=== PATIENT | female | born 1965 | race Caucasian/White ===

== ENCOUNTER → 2018-03-01 | Outpatient (CLI) | payer BC ==
[2018-03-01 13:32] LABS: Blood Urea Nitrogen 13 mg/dL (7-17)
== END | disposition home or self-care (01) ==
LOC: LABWHC1 12:10
PROVIDERS: ATTEND Physical Medicine & Rehabilitation
DX: Z01.812 Encounter for preprocedural laboratory examination (principal); N28.9 Disorder of kidney and ureter, unspecified
CPT/HCPCS: 36415; 82565; 84520

== ENCOUNTER 2022-10-19 13:52 | Day surgery (SDC) | payer OTHER ==
[2022-10-13 10:56] VITALS: BMI 29.1
[~2022-10-19 13:52] MED LIST: LACTATED RINGERS 1,000 ML IV SCH; Pre Op ABX Message 1 EACH MISC MISCELLANE ONE
[2022-10-19 14:12] VITALS: RESP 16
[2022-10-19] MEDS ORDERED: ONDANSETRON 4 MG/2 ML VIAL ONE (14:18)
[2022-10-19] MEDS ORDERED: DEXAMETHASONE SOD PHOSPHATE 4 MG/ML 1 ML VIAL IVP ONE (14:25)
[2022-10-19] MEDS ORDERED: ONDANSETRON 4 MG/2 ML VIAL IVP ONE (14:25)
[2022-10-19] MEDS ORDERED: PROPOFOL 10 MG/ML 20 ML VIAL IV ONE (15:50)
[2022-10-19] MEDS ORDERED: fentaNYL (PF) 50 MCG/ML 2 ML AMP ONE (15:50)
[2022-10-19] MEDS ORDERED: LIDOCAINE 2% INJ 20 MG/ML (2 ML VIAL) ONE (15:50)
[2022-10-19] MEDS ORDERED: MIDAZOLAM 2 MG/2 ML VIAL ONE (15:50)
[2022-10-19] MEDS ORDERED: BUPIVACAINE (PF) 0.5% 30 ML VIAL SQ ONE ×2 (16:25→16:35)
--- NOTE | 2022-10-19 16:41 | P.OP ---
Date of Procedure: 10/19/22 Preoperative Diagnosis: 1. Torn medial meniscus right knee 2. Torn lateral meniscus right knee 3. Osteoarthritis right knee Postoperative Diagnosis: 1. Torn medial meniscus right knee 2. Torn lateral meniscus right knee 3. Grade 2 chondromalacia medial femoral compartment, lateral femoral compartment, patellofemoral compartment 4. Synovitis Procedure(s) Performed: 1. Arthroscopy of the right knee with partial medial meniscectomy (10% of the meniscus excised) 2. Partial lateral meniscectomy (40% of meniscus excised) 3. Chondroplasties of the medial femoral, lateral femoral, and patellofemoral compartments 4. Partial synovectomy of the medial femoral, lateral femoral, and patellofemoral compartments Anesthesia: BRANDEN Surgeon: Eduard Meeks Estimated Blood Loss (ml): 5 Pathology: none sent Condition: stable Disposition: PACU Indications for Procedure: This is a 57-year-old female that presented to my office with pain in her right knee. An MRI demonstrated torn medial and lateral menisci, as well as osteoarthritis of her knee. Treatment options were discussed at length, she wishes to proceed with arthroscopic debridement of right knee. Informed consent was obtained. Operative Findings: The operative findings are consistent with a torn medial and lateral menisci, chondromalacia of the medial femoral, lateral femoral, patellofemoral compartments. There was also synovitis as well Description of Procedure: Patient was seen and evaluated in the preoperative area, the operative site was marked with a skin marker. The patient was then brought to the operating room and given 2 g of Ancef intravenously. A general anesthetic was administered by the anesthesia department. Tourniquet was placed on the right upper thigh and the lower extremity was then prepped and draped in usual sterile fashion. A universal timeout was then performed confirming the patient's name, surgical site, ALLERGIES, and consent. The limb was then exsanguinated and tourniquet insufflated to 250 mmHg. Standard inferior medial and inferior lateral portals were established in the knee. The trochar was inserted in the inferolateral portal. Examination began at the patellofemoral joint. There is noted to be grade 2 chondral malacia the patellofemoral compartment and a moderate amount of synovitis. Next the medial compartment was visualized. There was a tear of the posterior horn of the medial meniscus. There was grade 2 chondral malacia the mediofemoral compartment and synovitis. The notch area was then visualized and the ACL was intact. The Lateral compartment was then visualized and there was a tear of the posterior horn of the lateral meniscus. There was grade 2 chondromalacia, and a mild amount of synovitis. Next, using an arthroscopic shaver and a biter, partial medial meniscectomy was performed stable margins. Approximately 10% of the meniscus was excised. a partial lateral meniscectomy was also performed with approximately 40% of the lateral meniscus excised. A partial synovectomy is performed the medial femoral, lateral femoral, patellofemoral compartments. Chondroplasty was also performed of the medial femoral, lateral femoral, and patellofemoral compartments of the knee. Knee was then copiously irrigated, instruments removed, incisions were closed with 4-0 nylon. 30 mL of half percent plain Marcaine was injected sterilely into the surgical area. A sterile dressing was then applied, and the tourniquet was released. Patient was then transferred to recovery room in stable condition.condition.
[2022-10-19 17:00] VITALS: TEMP 96.8
[2022-10-19] MEDS ORDERED: HYDROmorphone 0.5 MG/0.5 ML SYRINGE IVP ONE ×2 (17:14→17:30)
[2022-10-19] MEDS ORDERED: LACTATED RINGERS 1,000 ML IV ONE (17:22)
[2022-10-19] MEDS ORDERED: KETOROLAC 15 MG/ML 1 ML VIAL IVP ONE (17:35)
[2022-10-19] MEDS ORDERED: traMADol 50 MG TAB ONE (18:07)
[2022-10-19] MEDS ORDERED: traMADol 50 MG TAB PO ONE (18:08)
[2022-10-19 18:21] VITALS: PULSE 49
[2022-10-19 18:35] VITALS: BP 130/62
== END 2022-10-19 18:48 | disposition home or self-care (01) ==
LOC: OR 13:52
PROVIDERS: ATTEND Orthopaedic Surgery
DX: S83.241A Other tear of medial meniscus, current injury, right knee, initial encounter (principal); S83.281A Other tear of lateral meniscus, current injury, right knee, initial encounter; M17.11 Unilateral primary osteoarthritis, right knee; M65.9 Synovitis and tenosynovitis, unspecified; M94.261 Chondromalacia, right knee
CPT/HCPCS: 29880; J2250; J1100; J0690; J2405; J3010; J1885; J2704; J1170; J2001

== ENCOUNTER 2022-10-27 14:59 | Emergency (ER) | payer OTHER ==
[2022-10-27] MEDS ORDERED: HYDROcodone/APAP 5-325MG 1 EACH TAB PO STA (16:59)
[2022-10-27 17:14] LABS: Basophils % (A) 0 %; Eosinophils # (A) 0.1 k/uL (0-0.7); Eosinophils % (A) 1 %; HCT 41.7 % (34.0-46.0); HGB 13.6 gm/dL (11.4-16.0); Lymphocytes # (A) 3.1 k/uL (1.0-4.8); Lymphocytes % (A) 21 %; MCH 30.2 pg (25.0-35.0); MCHC 32.6 g/dL (31.0-37.0); MCV 92.5 fL (80.0-100.0); Mean Platelet Volume 9.2; Monocytes # (A) 0.9 k/uL (0-1.0); Monocytes % (A) 6 %; Neutrophils # (A) 10.5 k/uL (1.3-7.7); Neutrophils % (A) 71 %; Platelet Count 306 k/uL (150-450); RBC 4.51 m/uL (3.80-5.40); RDW 12.2 % (11.5-15.5); WBC 14.8 k/uL (3.8-10.6)
[2022-10-27 17:22] LABS: ALT 15 U/L (4-34); AST 24 U/L (14-36); African American GFR (CKD) >90 (>60 ml/min/1.73 sqM); Albumin 4.3 g/dL (3.5-5.0); Alkaline Phosphatase 103 U/L (38-126); Anion Gap 11 mmol/L; Blood Urea Nitrogen 15 mg/dL (7-17); Carbon Dioxide 29 mmol/L (22-30); Chloride 95 mmol/L (98-107); Glucose 88 mg/dL (74-99); Non-African American GFR(CKD) >90 (>60 ml/min/1.73 sqM); Potassium 4.3 mmol/L (3.5-5.1); Sodium 135 mmol/L (137-145); Total Bilirubin 0.9 mg/dL (0.2-1.3); Total Protein 7.2 g/dL (6.3-8.2)
[2022-10-27 17:34] LABS: INR 0.9 (<1.2); Partial Thromboplastin Time 24.3 sec (22.0-30.0); Prothrombin Time 9.8 sec (9.0-12.0)
[2022-10-27] MEDS ORDERED: APIXABAN 5 MG TAB PO STA (17:40)
--- NOTE | 2022-10-27 17:51 | ED ---
Extremity Problem HPI - General Chief complaint: Extremity Problem,Nontraumatic Stated complaint: + for DVT Time Seen by Provider: 10/27/22 15:49 Source: patient Mode of arrival: wheelchair Limitations: no limitations - History of Present Illness Initial comments: 57-year-old female presents to the emergency department reporting positive ultrasound results. She had meniscus surgery on her right knee by Dr. Meeks on October 19. States that she was able to get up and ambulate using the walker. She began having increasing redness, pain and swelling in the extremity on Tuesday. Called the office several times this week and was able to get an appo intment today. They sent her over to ultrasound where it was found that the patient had a DVT. Denies history. No chest pain or shortness of breath. No clotting disorders. Denies any fevers or chills. 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 - Related Data Home Medications Medication Instructions Recorded Confirmed Alendronate Sodium 70 mg PO WE 10/13/22 10/27/22 Cetirizine HCl [Zyrtec] 10 mg PO DAILY 10/13/22 10/27/22 Montelukast [Singulair] 10 mg PO DAILY 10/13/22 10/27/22 atenoloL [Tenormin] 25 mg PO DAILY 10/13/22 10/27/22 atenoloL [Tenormin] 50 mg PO HS 10/13/22 10/27/22 Cholecalciferol [Vitamin D3 (25 25 mcg PO DAILY 10/27/22 10/27/22 Mcg = 1000 Iu)] Cyanocobalamin (Vitamin B-12) 1,000 mcg PO DAILY 10/27/22 10/27/22 [Vitamin B-12] L.acidoph,Paracasei, B.lactis 1 cap PO DAILY 10/27/22 10/27/22 [Probiotic] traMADol HCL 50 mg PO Q4H PRN 10/27/22 10/27/22 traZODone HCL [Desyrel] 100 mg PO HS 10/27/22 10/27/22 Previous Rx's Medication Instructions Recorded Apixaban [Eliquis Starter Pack 5 - 10 mg PO DIRECTED 30 Days 10/27/22 (for VTE)] #1 each Allergies Allergy/AdvReac Type Severity Reaction Status Date / Time codeine Allergy Vomiting Verified 10/27/22 15:46 Review of Systems ROS Statement: Those systems with pertinent positive or pertinent negative responses have been documented in the HPI. ROS Other: All systems not noted in ROS Statement are negative. Past Medical History Past Medical History: Hypertension, Osteoarthritis (OA) Additional Past Medical History / Comment(s): SEASONAL ALLERGIES History of Any Multi-Drug Resistant Organisms: None Reported Past Surgical History: Orthopedic Surgery Additional Past Surgical History / Comment(s): COLONOSCOPY. EPIDURAL INJECTIONS Past Anesthesia/Blood Transfusion Reactions: No Reported Reaction Past Psychological History: No Psychological Hx Reported Smoking Status: Former smoker Past Alcohol Use History: None Reported Past Drug Use History: None Reported - Past Family History Father Family Medical History: Cancer Mother Family Medical History: Cancer General Exam Limitations: no limitations General appearance: alert, in no apparent distress Eye exam: Present: normal appearance, PERRL, EOMI. Absent: scleral icterus, conjunctival injection, periorbital swelling ENT exam: Present: normal exam, mucous membranes moist Respiratory exam: Present: normal lung sounds bilaterally. Absent: respiratory distress, wheezes, rales, rhonchi, stridor Cardiovascular Exam: Present: regular rate, normal rhythm, normal heart sounds. Absent: systolic murmur, diastolic murmur, rubs, gallop, clicks Extremities exam: Present: tenderness (right calf), other (incision over right knee is clean, dry and intact, no purulent draiange, compartments soft 2+ DP and PT pulses) Course Vital Signs 10/27/22 10/27/22 15:00 18:55 Temperature 98.7 F 98.2 F Pulse Rate 67 68 Respiratory 16 18 Rate Blood Pressure 140/78 156/79 O2 Sat by Pulse 98 98 Oximetry Medical Decision Making - Medical Decision Making Was pt. sent in by a medical professional or institution (, PA, ENGINEERING DIRECTOR, urgent care, hospital, or prison...) When possible be specific @ -US department Did you speak to anyone other than the patient for history (EMS, parent, family, police, friend...)? What history was obtained from this source @ -No Did you review nursing and triage notes (agree or disagree)? Why? @ -I reviewed and agree with nursing and triage notes Were old charts reviewed (outside hosp., previous admission, EMS record, old EK G, old radiological studies, urgent care reports/EKG's, prison records)? Report findings @ -Outpatient US was reviewed from earlier today Differential Diagnosis (chest pain, altered mental status, abdominal pain women, abdominal pain men, vaginal bleeding, weakness, fever, dyspnea, syncope, headache, dizziness, GI bleed, back pain, seizure, CVA, palpatations, mental health, musculoskeletal)? @ -compartment syndrome, post op pain, dvt, post op infection EKG interpreted by me (3pts min.). @ -Not done X-rays interpreted by me (1pt min.). @ -None done CT interpreted by me (1pt min.). @ -None done U/S interpreted by me (1pt. min.). @ -yes What testing was considered but not performed or refused? (CT, X-rays, U/S, labs)? Why? @ -pe workup but patient has no chest pain/sob What meds were considered but not given or refused? Why? @ -None Did you discuss the management of the patient with other professionals (professionals i.e. , PA, ENGINEERING DIRECTOR, lab, RT, psych nurse, social work job titles, cattle killer, teacher, welfare officer, case monitor)? Give summary @ -No Was smoking cessation discussed for >3mins.? @ -No Was critical care preformed (if so, how long)? @ -No Were there social determinants of health that impacted care today? How? (Homelessness, low income, unemployed, alcoholism, drug addiction, transportation, low edu. Level, literacy, decrease access to med. care, [facility], rehab)? @ -No Was there de-escalation of care discussed even if they declined (Discuss DNR or withdrawal of care, Hospice)? DNR status @ -No What co-morbidities impacted this encounter? (DM, HTN, Smoking, COPD, CAD, Cancer, CVA, ARF, Chemo, Hep., AIDS, mental health diagnosis, sleep apnea, morbid obesity)? @ -None Was patient admitted / discharged? Hospital course, mention meds given and route, prescriptions, significant lab abnormalities, going to OR and other pertinent info. @ -Upon arrival patient is placed in room 32. History and physical exam was performed. Ultrasound is reviewed which demonstrates a DVT in the right popliteal region as well as extending into the posterior tibial. The patient does not have any proximal clots. She does not have any chest pain or shortness of breath. Laboratory studies are completed and demonstrate normal blood coun ts. Patient will be initiated on Eliquis. Given first dose in the emergency room. Will be discharged home started pack. Instructed to follow up with her primary care doctor and vascular surgery for further management of the anticoagulation and return for any new or worsening symptoms. Patient was agreeable and she was discharged home in stable condition Undiagnosed new problem with uncertain prognosis? @ -No Drug Therapy requiring intensive monitoring for toxicity (Heparin, Nitro, Insulin, Cardizem)? @ -No Were any procedures done? @ -No Diagnosis/symptom? @ -acute rle dvt, s/p knee surgery Acute, or Chronic, or Acute on Chronic? @ -acute Uncomplicated (without systemic symptoms) or Complicated (systemic symptoms)? @ -uncomplicated Side effects of treatment? @ -Bleeding Exacerbation, Progression, or Severe Exacerbation? @ -No Poses a threat to life or bodily function? How? (Chest pain, USA, VT, pneumonia, PE, COPD, DKA, ARF, appy, cholecystitis, CVA, Diverticulitis, Homicidal, Suicidal, threat to staff... and all critical care pts) @ -Yes - Lab Data Result diagrams: 10/27/22 16:44 10/27/22 16:44 Lab Results 10/27/22 10/27/22 10/27/22 Range/Units 16:44 16:44 16:44 WBC 14.8 H (3.8-10.6) k/uL RBC 4.51 (3.80-5.40) m/uL Hgb 13.6 (11.4-16.0) gm/dL Hct 41.7 (34.0-46.0) % MCV 92.5 (80.0-100.0) fL MCH 30.2 (25.0-35.0) pg MCHC 32.6 (31.0-37.0) g/dL RDW 12.2 (11.5-15.5) % Plt Count 306 (150-450) k/uL MPV 9.2 Neutrophils % 71 % Lymphocytes % 21 % Monocytes % 6 % Eosinophils % 1 % Basophils % 0 % Neutrophils # 10.5 H (1.3-7.7) k/uL Lymphocytes # 3.1 (1.0-4.8) k/uL Monocytes # 0.9 (0-1.0) k/uL Eosinophils # 0.1 (0-0.7) k/uL Basophils # 0.0 (0-0.2) k/uL PT 9.8 (9.0-12.0) sec INR 0.9 (<1.2) APTT 24.3 (22.0-30.0) sec Sodium 135 L (137-145) mmol/L Potassium 4.3 (3.5-5.1) mmol/L Chloride 95 L (98-107) mmol/L Carbon Dioxide 29 (22-30) mmol/L Anion Gap 11 mmol/L BUN 15 (7-17) mg/dL Creatinine 0.45 L (0.52-1.04) mg/dL Est GFR (CKD-EPI)AfAm >90 (>60 ml/min/1.73 sqM) Est GFR (CKD-EPI)NonAf >90 (>60 ml/min/1.73 sqM) Glucose 88 (74-99) mg/dL Calcium 9.0 (8.4-10.2) mg/dL Total Bilirubin 0.9 (0.2-1.3) mg/dL AST 24 (14-36) U/L ALT 15 (4-34) U/L Alkaline Phosphatase 103 (38-126) U/L Total Protein 7.2 (6.3-8.2) g/dL Albumin 4.3 (3.5-5.0) g/dL Disposition Clinical Impression: Deep vein thrombosis (DVT) of lower extremity Disposition: HOME SELF-CARE Condition: Stable Instructions (If sedation given, give patient instructions): Deep Vein Thrombosis (ED) Additional Instructions: Please take medications as directed. Follow up with primary care doctor and return for any new or worsening symptoms. Vascular surgeon would be a good doctor to follow up with to discuss how long you need to be on the anticoagulation Prescriptions: Apixaban [Eliquis Starter Pack (for VTE)] 5 - 10 mg PO DIRECTED 30 Days #1 each Is patient prescribed a controlled substance at d/c from ED?: No Referrals: Tayler Caal MD [Primary Care Provider] - 1-2 days Stefania Cervantes DO [STAFF PHYSICIAN] - 1-2 days Time of Disposition: 17:52
[2022-10-27 18:58] VITALS: BP 156/79; PULSE 68; RESP 18; TEMP 98.2
== END 2022-10-27 19:26 | disposition home or self-care (01) ==
LOC: EC 14:59
DX: I82.431 Acute embolism and thrombosis of right popliteal vein (principal); I82.441 Acute embolism and thrombosis of right tibial vein; I10 Essential (primary) hypertension; Z88.5 Allergy status to narcotic agent; Z87.891 Personal history of nicotine dependence; Z79.899 Other long term (current) drug therapy
CPT/HCPCS: 36415; 80053; 85025; 85610; 85730; 99284

== ENCOUNTER → 2022-10-27 | Outpatient (CLI) | payer OTHER ==
--- NOTE | 2022-10-27 15:06 | US ---
EXAMINATION TYPE: US venous doppler duplex LE RT DATE OF EXAM: 10/27/2022 2:46 PM COMPARISON: NONE CLINICAL HISTORY: M25.561 PAIN IN RT KNEE. right knee surgery 1 week ago. pain right knee. edema righ t leg SIDE PERFORMED: right TECHNIQUE: The lower extremity deep venous system is examined utilizing real time linear array sonog rhonda with graded compression, doppler sonography and color-flow sonography. VESSELS IMAGED: Common Femoral Vein Deep Femoral Vein Greater Saphenous Vein * Femoral Vein Popliteal Vein Small Saphenous Vein * Proximal Calf Veins (* superficial vessels) Right Leg: +positive for DVT right popliteal vein and right PTV IMPRESSION: Findings compatible with DVT.
== END | disposition home or self-care (01) ==
LOC: RADUSWWP 13:48
PROVIDERS: ATTEND Orthopaedic Surgery
DX: Z48.89 Encounter for other specified surgical aftercare (principal); M17.0 Bilateral primary osteoarthritis of knee; M23.322 Other meniscus derangements, posterior horn of medial meniscus, left knee; M23.342 Other meniscus derangements, anterior horn of lateral meniscus, left knee; I80.3 Phlebitis and thrombophlebitis of lower extremities, unspecified

== ENCOUNTER → 2023-09-19 | Outpatient (CLI) | payer OTHER ==
[2023-09-19 11:01] LABS: INR 0.9 (<1.2); Partial Thromboplastin Time 25.4 sec (22.0-30.0); Prothrombin Time 9.9 sec (10.0-12.5)
[2023-09-19 15:53] LABS: ALT 16 U/L (8-44); AST 19 U/L (13-35); Albumin 4.3 g/dL (3.8-4.9); Albumin/Globulin Ratio 1.79 Ratio (1.60-3.17); Alkaline Phosphatase 95 U/L (41-126); Blood Urea Nitrogen 15.6 mg/dL (9.0-27.0); Calcium 9.8 mg/dL (8.7-10.3); Carbon Dioxide 28.5 mmol/L (21.6-31.8); Chloride 102 mmol/L (96-109); Globulin 2.4 g/dL (1.6-3.3); Glucose 97 mg/dL (70-110); Potassium 4.3 mmol/L (3.5-5.5); Sodium 142 mmol/L (135-145); Total Bilirubin 0.4 mg/dL (0.3-1.2); Total Protein 6.7 g/dL (6.2-8.2)
[2023-09-19 16:11] LABS: HCT 42.9 % (37.2-46.3); HGB 13.7 g/dL (12.0-15.0); MCH 29.9 pg (27.0-32.0); MCHC 31.9 g/dL (32.0-37.0); MCV 93.7 FL (80.0-97.0); Mean Platelet Volume 11.7 FL (9.5-12.2); NRBC Per 100 WBC 0 X 10*3/uL (0.00-0.01); Platelet Count 261 X 10*3/uL (140-440); RBC 4.58 X 10*6/uL (4.10-5.20); RDW 12.7 % (11.5-14.5); WBC 7.69 X 10*3/uL (4.50-10.00)
[2023-09-19 17:33] LABS: Appearance,Urine Clear (Clear); Bilirubin,Urine Negative (Negative); Blood,Urine Negative (Negative); Color,Urine Yellow (Yellow); Ketones,Urine Negative (Negative); Nitrite,Urine Negative (Negative); Specific Gravity,Urine 1.021 (1.001-1.030); Urobilinogen,Urine 0.2 E.U./DL
[2023-09-19 17:41] LABS: Bacteria,Urine None Seen (None Seen)
== END | disposition home or self-care (01) ==
LOC: LABPAT 09:59
PROVIDERS: ATTEND Orthopaedic Surgery
DX: Z01.812 Encounter for preprocedural laboratory examination (principal)
CPT/HCPCS: 36415; 80053; 81001; 85027; 85610; 85730

== ENCOUNTER 2023-09-27 09:34 | Day surgery (SDC) | payer OTHER ==
[2023-09-22 14:32] VITALS: BMI 29.5
[~2023-09-27 09:34] MED LIST changes: +HYDROmorphone 0.5 MG/0.5 ML SYRINGE IVP PRN; -LACTATED RINGERS 1,000 ML IV SCH; +LIDOCAINE 1% (10MG/ML) FOR IV START INTRADERMA PRN; +MAGNESIUM HYDROXIDE 2,400 MG/30 ML CUP PO PRN; +NA PHOS,M-B/NA PHOS,DI-BA 133 ML ENEMA RECTAL PRN; +NALOXONE 0.4 MG/ML 1 ML VIAL IV PRN; -Pre Op ABX Message 1 EACH MISC MISCELLANE ONE; +TRANEXAMIC 1,000 MG/100ML-NACL 1,000 MG in SALINE 1 100ML.BAG IVPB PRN; +bisacodyL 10 MG SUPP RECTAL PRN
[2023-09-27] MEDS: GABAPENTIN 300 MG CAP PO PRN (10:30)
[2023-09-27] MEDS: ONDANSETRON 4 MG/2 ML VIAL IVP ONE (10:30)
[2023-09-27] MEDS: MELOXICAM 7.5 MG TAB PO PRN (10:30)
[2023-09-27] MEDS: ACETAMINOPHEN TAB 500 MG TAB PO PRN (10:30)
[2023-09-27] MEDS: fentaNYL (PF) 50 MCG/ML 2 ML AMP IVP ONE (10:38)
[2023-09-27] MEDS: MIDAZOLAM 2 MG/2 ML VIAL IVP ONE (10:38)
[2023-09-27] MEDS: LACTATED RINGERS 1,000 ML IV ONE (10:50)
[2023-09-27] MEDS ORDERED: PROPOFOL 10 MG/ML 20 ML VIAL IV ONE (10:51)
[2023-09-27] MEDS ORDERED: MIDAZOLAM 2 MG/2 ML VIAL ONE (10:51)
[2023-09-27] MEDS ORDERED: fentaNYL (PF) 50 MCG/ML 2 ML AMP ONE (10:51)
[2023-09-27] MEDS ORDERED: SODIUM CHLORIDE 0.9% (PF) 10 ML VIAL ONE (10:51)
[2023-09-27] MEDS ORDERED: TRANEXAMIC 1,000 MG/100ML-NACL PREMIX BAG ONE (10:51)
[2023-09-27] MEDS ORDERED: PHENYLEPHRINE 10 MG/ML VIAL ONE (10:51)
[2023-09-27] MEDS ORDERED: HYDROmorphone (PF) 1 MG/ML ONE (10:51)
[2023-09-27] MEDS ORDERED: ROPIVACAINE 5 MG/ML 30 ML VIAL ONE (10:51)
[2023-09-27] MEDS: ceFAZolin 1,000 MG in SODIUM CHLORIDE 0.9% 1,000 ML IRRIGATION ONE (10:55)
--- NOTE | 2023-09-27 11:50 | P.ANPRN ---
Procedure Note - Anesthesia - Nerve Block Performed Right Adductor Canal Infusion Time Out Performed: Yes (1037) Date of Procedure: 09/27/23 Procedure Start Time: 10:38 Procedure Stop Time: 10:43 Location of Patient: PreOp Indication: Acute Post-Operative Pain, Requested by Surgeon Specifically requested for management of pain by DrParis: Eduard Meeks Sedation Type: Sedate with meaningful contact maintained Preparation: Sterile Prep, Sterile Dressing Position: Supine Catheter Depth at Skin (cm): 7 Catheter: Indwelling Needle Types: Pajunk Needle Gauge: 18 Ultrasound used to visualize needle placement: Yes Ultrasound used to observe medication spread: Yes Injectate: 0.5% Ropivacaine (see comment for volume) (15cc+10cc nacl pf) Blood Aspirated: No Pain Paresthesia on Injection Noted: No Resistance on Injection: Normal Image Stored and Saved: Yes Events: Uneventful and Well Tolerated
--- NOTE | 2023-09-27 11:51 | P.ANPRN ---
Procedure Note - Anesthesia - Nerve Block Performed Right iPack Single Time Out Performed: Yes (1037) Date of Procedure: 09/27/23 Procedure Start Time: 10:44 Procedure Stop Time: 10:49 Location of Patient: PreOp Indication: Acute Post-Operative Pain, Requested by Surgeon Specifically requested for management of pain by DrParis: Eduard Meeks Sedation Type: Sedate with meaningful contact maintained Preparation: Sterile Prep Position: Supine Catheter: None Needle Types: Pajunk Needle Gauge: 21 Ultrasound used to visualize needle placement: Yes Ultrasound used to observe medication spread: Yes Injectate: 0.5% Ropivacaine (see comment for volume) (15cc +10cc nacl pf) Blood Aspirated: No Pain Paresthesia on Injection Noted: No Resistance on Injection: Normal Image Stored and Saved: Yes Events: Uneventful and Well Tolerated
--- NOTE | 2023-09-27 12:06 | P.OP ---
Date of Procedure: 09/27/23 Preoperative Diagnosis: Severe osteoarthritis of the right knee with a valgus deformity Postoperative Diagnosis: Severe osteoarthritis of the right knee with a valgus deformity Procedure(s) Performed: Right total knee arthroplasty Implants: [employer] Nephew Journey II CR Oxinium Bi-cruciate stabilized femoral component size 4, right [employer]hew Journey nonporous tibial baseplate size 3, right [employer] Journey II, constrained articular insert, size 11 mm, Size 3-4, right [employer]hew Journey Alaina II resurfacing patellar component, oval, 29 mm All components were cemented using Palacos R bone cement The articulation is Oxinium on polyethylene Anesthesia: spinal Surgeon: Eduard Meeks Pattern Weaver #1: Ema Lopez Estimated Blood Loss (ml): 30 Pathology: none sent Condition: stable Disposition: PACU Indications for Procedure: The patient's knee is end-stage, and conservative management has failed. The operation of knee replacement has been discussed at length in the office, as well as potential risks and complications. These are inclusive of, but not limited to: Infection, bleeding, scarring, discomfort, stiffness, blood vessel and nerve damage, need for further surgery, failure to relieve symptoms, persistence, recurrence, or worsening of problems, loosening, dislocation, wear, blood clot, pulmonary embolism, , gait dysfunction, stiffness, and other risks as discussed in the office. Patient elects to proceed and the consent form has been signed. Operative Findings: The operative findings are consistent with severe osteoarthritis of the right knee with a significant valgus deformity Description of Procedure: The patient was seen in the preoperative area, the consent was reviewed and the operative site was marked with a skin marker. The patient verified the procedure and the operative site. An adductor canal pain catheter and an iPACK block were placed by anesthesia in the preoperative area. The patient was then brought to the operating room and positioned on the operating room table in the supine position. Preoperative antibiotics and a gram of tranexamic acid were given intravenously. A spinal anesthetic was administered by the anesthesia department. Care was taken to make sure that all pressure points were adequately padded. A tourniquet was placed on the upper thigh and the lower extremity was prepped with ChloraPrep and draped in usual sterile fashion. A universal time-out was then performed which confirmed the patient's name, surgical site, ALLERGIES, and consent. The lower extremity was then exsanguinated and tourniquet was inflated to 250 mmHg. A standard anterior midline approach to the knee was performed. The skin and subcutaneous tissue were sharply dissected down to the patellar tendon. A medial parapatellar arthrotomy was then performed. The knee was then extended, the patellar was everted, and the knee was flexed. The infra-patellar fat pad was removed in order to enhance exposure. The anterior horns of both menisci were excised, and a release was performed to the posterior medial aspect of the knee. On gross visual inspection, there was complete loss of articular cartilage in the medial and patellofemoral joint spaces. There was also significant cartilage damage in the lateral compartment. There were multiple periarticular osteophytes globally about the knee which were then removed with a Ronguer. The femoral canal was then opened with the 9.5 mm intramedullary drill. The 8 mm intramedullary sheila was then inserted into the femoral canal with the distal femoral cutting guide set for 5 of valgus. The distal femoral cutting block was then pinned in place. The intramedullary sheila was then removed, and the distal femur was then cut. The cutting block was then removed and the cut was checked for symmetry. The resected bone was then measured to confirm the appropriate distal femoral resection. Next, the sizing guide was then placed and set for 3 external rotation based off of the epicondylar axis and [place]'s line. Pins were then placed and the drill holes, and the femur was sized with the sizing stylus. The pins were then removed, and the sizing guide was then removed. The spikes of the appropriate size femoral block was then placed into the predrilled holes, and malleted into place. Two 45 mm pins were then placed into the fixation holes on the cutting block. An kisha wing was then used to ensure there would be no notching with the anterior cut. The anterior condyles were cut without notching. The anterior chord cut was then performed, followed by the posterior cut, posterior chamfer cut, and the anterior chamfer cut. The collateral ligaments were protected during the entire process. The cutting block was then removed. Any remaining bone and osteophytes were removed from the femur with a Ronguer. Attention was then directed to the tibia. The remaining ACL was removed with a Ronguer, and the tibia was then gently subluxed forward with a large bent knee retractor. Any remaining menisci were excised. The posterior lateral corner was cauterized in order to coagulate the lateral geniculate artery. The extra medullary tibial cutting guide was then placed, set for the appropriate rotation, slope, and depth of resection. The proximal tibia cutting guide was then pinned in place. Proximal tibia was then cut and sized. A curved osteotome was then used to remove any posterior osteophytes from the distal femur. The femoral trial was placed. The box drill guide was used to remove the intrac ondylar femoral bone. The box trial was then placed. The tibial trial was placed with the appropriate-sized insert. The knee was able to fully extend and flex to 130 and was stable throughout all range of motion. The knee was then extended and the patella was everted. Patella was then measured, and then using an osteotomy guide, the patella was cut at the appropriate level. The patellar component was sized. The patellar drill guide was placed and the patella was drilled. The patella trial was then placed. The knee was then taken through range of motion with the patella trial and the patella tracked normally using the no thumbs technique. The patella trial was then removed. The knee was then flexed and lug holes were drilled through the femoral trial and the femoral trial was then removed. The tibial was then re-exposed, and the tibial broach guide was then pinned in place after it was set for the appropriate rotation to allow for the most coverage without overhang. The tibia was then reamed and broached. The femoral canal was plugged with autologous bone. The cut surfaces of bone were then irrigated with pulsatile lavage. The knee was also irrigated with Irrisept solution. The components were then opened, the cement was mixed. Cement was placed on the backside of the femoral, tibial, and patellar components. Cement was then applied to the tibial surface and pressurized into the surface using finger pressurization technique. The tibial component was then applied and excess cement was removed after it was impacted securely noted to be flush with the cut surface. In similar fashion, the cement was applied to the cut femoral surface, pressurized and using finger pressurization the component was impacted in place. Excess cement was removed. The polyethylene spacer was then implanted and locked into position. Patellar component was then applied in a similar technique and the patellar clamp was used to hold patella in place while the cement hardened. The knee was held in full extension while the cement hardened. Once the cement had fully hardened, the knee was reinspected. Any other cement extrusion was removed the final range of motion testing showed range of motion from 0-130 with excellent stability, both medial and laterally and appropriate alignment of the leg. Patella tracked normally. After the cemented hardened, the tourniquet was released and hemostasis was obtained. A second gram of transexamic acid was given intravenously. The knee was again irrigated. The knee was again taken through range of motion and found to be stable throughout all range of motion of 0-130, and the patella tracked normally. The fascia was then closed with 0 Vicryl followed by #2 strata fix suture. The subcutaneous tissue was closed with 3-0 Vicryl and 3-0 strata fix. Exofin glue was used for the skin and placed with the knee in flexion. After the glue had dried, and Optafoam silver impregnated dressing was applied. A lightly compressive dressing was applied using web roll and Jadon wrap. Patient was then transferred to the stretcher and taken to recovery room in stable condition. Sponge and needle counts were correct. The assistant front desk manager BRENNAN Roberson was required due the complexity surgery and the need for a skilled boilermaker's assistant. She assisted in positioning, draping, retraction, and closure of the wound.
[2023-09-27] MEDS: ROPIVACAINE 0.75% 1,100 MG, SODIUM CHLORIDE 0.9% 500 ML 403 ML, EMPTY PAIN BALL 1 EACH MISCELLANE PRN (12:45)
[2023-09-27] MEDS: fentaNYL (PF) 50 MCG/ML 2 ML AMP IV PRN (12:46)
[2023-09-27] MEDS: MEPERIDINE 50 MG/ML SYRINGE IVP ONE (13:25)
[2023-09-27] MEDS: LACTATED RINGERS 1,000 ML IV SCH (13:26)
--- NOTE | 2023-09-27 13:53 | XR ---
EXAMINATION TYPE: XR knee limited RT DATE OF EXAM: 09/27/2023 COMPARISON: NONE TECHNIQUE: Two views submitted HISTORY: Post op FINDINGS: There is a prosthetic knee in near anatomic alignment. There is soft tissue edema and soft tissue a ir\emphysema. IMPRESSION: 1. Postoperative change.
[2023-09-27] MEDS: HYDROmorphone 0.5 MG/0.5 ML SYRINGE IVP PRN (15:41)
[2023-09-27] MEDS: SODIUM CHLORIDE 0.9% 1,000 ML IV SCH (16:37)
[2023-09-27] MEDS: ONDANSETRON 4 MG/2 ML VIAL IVP PRN (16:51)
[2023-09-27] MEDS: HYDROmorphone 1 MG/ML 1 ML SYRINGE IVP PRN (18:32)
[2023-09-27] MEDS ORDERED: ASPIRIN 325 MG TAB PO SCH (21:00)
[2023-09-27] MEDS: SENNOSIDES-DOCUSATE SODIUM 1 EACH TAB PO SCH (21:12)
[2023-09-28] MEDS ORDERED: NON FORMULARY DRUG (Alendronate Sodium [Alendronate Sodium] 70 MG Tablet) PO SCH (07:00)
--- NOTE | 2023-09-28 07:47 | P.PN ---
Progress Note - Text 09/28/22 717am 58-year-old female status post total knee replacement. Patient has an On-Q pump for postop pain control with a solution running at 8 cc an hour with a VAS of 8. Pain is predominantly located posteriorly and I explained to the patient that the iPAQ block is worn off. Dressing clean dry and intact to continue On-Q pump infusion
[2023-09-28 07:49] VITALS: BP 110/67; PULSE 63; RESP 18; TEMP 97.8
[2023-09-28] MEDS ORDERED: HYDROcodone/APAP 7.5-325MG 1 EACH TAB PO PRN (09:08)
[2023-09-28] MEDS: APIXABAN 5 MG TAB PO SCH (09:24)
[2023-09-28] MEDS: HYDROcodone/APAP 7.5-325MG 1 EACH TAB PO PRN (09:24)
[2023-09-28] MEDS: LORATADINE 10 MG TAB PO SCH (09:24)
[2023-09-28] MEDS: CHOLECALCIFEROL 25 MCG (1000 IU) TABLET PO SCH (09:24)
[2023-09-28] MEDS: FAMOTIDINE 20 MG TAB PO SCH (09:24)
[2023-09-28] MEDS: MONTELUKAST 10 MG TAB PO SCH (09:24)
[2023-09-28] MEDS ORDERED: CYCLOBENZAPRINE 10 MG TAB PO PRN (10:04)
--- NOTE | 2023-09-28 10:16 | P.DS ---
Providers Expected date of discharge: 09/28/23 Attending physician: Eduard Meeks Consults: 09/27/23 12:56 Consult Physician Routine Consulting Provider: Janes Lombardo Consult Reason/Comments: medical management Do you want consulting provider notified?: Yes Primary care physician: Tayler Caal - Discharge Diagnosis(es) (1) Osteoarthritis of right knee Current Visit: Yes Status: Acute (2) Status post total right knee replacement Current Visit: Yes Status: Acute Hospital Course: This is a 58-year-old female with known history of degenerative arthritis of the right knee. The patient presented for evaluation as an outpatient. After discussion and consideration patient elects to proceed with total knee arthroplasty. The patient is seen preoperatively by Dr. Meeks and medically cleared for surgery by their primary care physician. Patient is admitted to [facility] on 09/27/2023 for total knee arthroplasty. The procedure is performed without complication or sequelae. The patient is doing well postoperatively. Labs and vital signs are stable on day of discharge. On day of discharge patient's knee incision is healing well. There is minimal erythema. There is no drainage noted at this time. There is minimal soft tissue swelling to the knee. Patient has full foot and ankle motion without difficulty or pain. Calf is soft and nontender to palpation. Neurovascular status to the right lower extremity is intact. Patient is discharged home in good condition. Please see med rec for accurate list of home medications. Plan - Discharge Summary Discharge Rx Participant: No New Discharge Prescriptions: New HYDROcodone/APAP 7.5-325MG [[place] 7.5-325] 1 - 2 tab PO Q6H PRN #32 tab PRN Reason: Pain Sennosides [Senokot] 2 tab PO DAILY PRN #60 tablet PRN Reason: Constipation Ondansetron Odt [Zofran Odt] 1 tab PO Q8HR PRN #10 tab PRN Reason: Nausea Cyclobenzaprine [Flexeril] 10 mg PO TID PRN #30 tab PRN Reason: Muscle Spasm Apixaban [Eliquis] 2.5 mg PO BID 30 Days #60 tab No Action Montelukast [Singulair] 10 mg PO QAM Cetirizine HCl [Zyrtec] 10 mg PO DAILY Famotidine [Pepcid] 20 mg PO QAM atenoloL [Tenormin] 20 mg PO HS atenoloL [Tenormin] 50 mg PO QAM Alendronate Sodium 70 mg PO WE Cholecalciferol [Vitamin D3 (25 Mcg = 1000 Iu)] 25 mcg PO DAILY traZODone HCL [Desyrel] 100 mg PO HS Discharge Medication List Alendronate Sodium 70 mg PO WE 10/13/22 [History] Cetirizine HCl [Zyrtec] 10 mg PO DAILY 10/13/22 [History] Montelukast [Singulair] 10 mg PO QAM 10/13/22 [History] atenoloL [Tenormin] 50 mg PO QAM 10/13/22 [History] Cholecalciferol [Vitamin D3 (25 Mcg = 1000 Iu)] 25 mcg PO DAILY 10/27/22 [History] traZODone HCL [Desyrel] 100 mg PO HS 10/27/22 [History] Famotidine [Pepcid] 20 mg PO QAM 09/22/23 [History] atenoloL [Tenormin] 20 mg PO HS 09/22/23 [History] Apixaban [Eliquis] 2.5 mg PO BID 30 Days #60 tab 09/27/23 [Rx] HYDROcodone/APAP 7.5-325MG [[place]auw 7.5-325] 1 - 2 tab PO Q6H PRN #32 tab 09/27/23 [Rx] Ondansetron Odt [Zofran Odt] 1 tab PO Q8HR PRN #10 tab 09/27/23 [Rx] Sennosides [Senokot] 2 tab PO DAILY PRN #60 tablet 09/27/23 [Rx] Cyclobenzaprine [Flexeril] 10 mg PO TID PRN #30 tab 09/28/23 [Rx] Follow up Appointment(s)/Referral(s): [facility],Equipment [NON-STAFF] - As Needed (*Please call [facility] to arrange delivery of the Continuous Passive Motion (CPM) machine. ) [facility], [NON-STAFF] - 1-2 Days ([facility] will call you to schedule your in home physical therapy visits. ) Eduard Meeks DO [Doctor of Osteopathic Medicine] - 10/13/23 2:45 pm (With Ema) Activity/Diet/Wound Care/Special Instructions: Weightbearing as tolerated with a walker. CPM 5-6h daily as tolerated. Leave dressing intact. Dressing may be removed by home care nurse or by patient in 7 days. Then change dressing twice daily until follow up. May shower with initial dressing intact and after removal. If dressing become saturated, please remove. Recommend use of compression stockings daily until follow up to help prevent swelling and blood clots. May remove at night before sleeping. Please take Eliquis twice daily for 30 days to prevent blood clots. Please follow up with [facility] and call with any questions or concerns, . Discharge Disposition: HOME WITH HOME HEALTH SERVICES
[2023-09-28 10:59] LABS: Basophils # (A) 0.04 X 10*3/uL (0.00-0.10); Basophils % (A) 0.3 %; Eosinophils # (A) 0 X 10*3/uL (0.04-0.35); Eosinophils % (A) 0 %; HCT 38.4 % (37.2-46.3); HGB 12.2 g/dL (12.0-15.0); Lymphocytes # (A) 2.18 X 10*3/uL (0.90-5.00); Lymphocytes % (A) 15.3 %; MCH 29.9 pg (27.0-32.0); MCHC 31.8 g/dL (32.0-37.0); MCV 94.1 FL (80.0-97.0); Mean Platelet Volume 11.6 FL (9.5-12.2); Monocytes # (A) 1.14 X 10*3/uL (0.20-1.00); NRBC Per 100 WBC 0 X 10*3/uL (0.00-0.01); Neutrophils # (A) 10.81 X 10*3/uL (1.80-7.70); Platelet Count 215 X 10*3/uL (140-440); RBC 4.08 X 10*6/uL (4.10-5.20); RDW 13.1 % (11.5-14.5); WBC 14.22 X 10*3/uL (4.50-10.00)
[2023-09-28] MEDS ORDERED: traZODone HCL 100 MG TAB PO SCH (21:00)
[2023-09-28] MEDS ORDERED: APIXABAN 2.5 MG TABLET PO SCH (21:00)
== END 2023-09-28 12:43 | disposition home health service (06) ==
LOC: OR 09:34 → 4SSUR 12:30 → OR 09-28 12:43
PROVIDERS: ATTEND Orthopaedic Surgery
DX: M17.11 Unilateral primary osteoarthritis, right knee (principal); G89.18 Other acute postprocedural pain; I10 Essential (primary) hypertension; H91.90 Unspecified hearing loss, unspecified ear; F10.90 Alcohol use, unspecified, uncomplicated; Z86.718 Personal history of other venous thrombosis and embolism; Z88.5 Allergy status to narcotic agent; Z79.899 Other long term (current) drug therapy; Z98.890 Other specified postprocedural states; Z87.891 Personal history of nicotine dependence
CPT/HCPCS: 97161; 64999; 64448; 85025; 73560; 27447; C1713; C1776; C1751; J2250; J2175; J0690 ×2; J2405 ×2; J3010; J1170 ×3; J2795

== ENCOUNTER 2024-05-23 23:09 | Emergency (ER) | payer OTHER ==
[2024-05-23 23:14] VITALS: RESP 18
--- NOTE | 2024-05-23 23:31 | ED ---
General Adult HPI - General Chief complaint: Head Injury Stated complaint: Fall Time Seen by Provider: 05/23/24 23:16 Source: patient, EMS, RN notes reviewed, old records reviewed Mode of arrival: EMS Limitations: no limitations - History of Present Illness Initial comments: 58-year-old female presents with head injury and loss consciousness. Patient w as found in her garage apparently unconscious and surrounded by significant amount of blood from head injury. The exact circumstances are not known. The patient does not recall falling. Patient does not recall any of the events preceding being picked up by paramedics and transported to the hospital. She denies anticoagulation. She was placed in a c-collar for transport, paramedics report bleeding was controlled during transport. - Related Data Home Medications Medication Instructions Recorded Confirmed Alendronate Sodium 70 mg PO WE 10/13/22 09/27/23 Cetirizine HCl [Zyrtec] 10 mg PO DAILY 10/13/22 09/27/23 Montelukast [Singulair] 10 mg PO QAM 10/13/22 09/27/23 atenoloL [Tenormin] 50 mg PO QAM 10/13/22 09/27/23 Cholecalciferol [Vitamin D3 (25 25 mcg PO DAILY 10/27/22 09/27/23 Mcg = 1000 Iu)] traZODone HCL [Desyrel] 100 mg PO HS 10/27/22 09/27/23 Famotidine [Pepcid] 20 mg PO QAM 09/22/23 09/27/23 atenoloL [Tenormin] 20 mg PO HS 09/22/23 09/22/23 Previous Rx's Medication Instructions Recorded Apixaban [Eliquis] 2.5 mg PO BID 30 Days #60 tab 09/27/23 HYDROcodone/APAP 7.5-325MG [[place] 1 - 2 tab PO Q6H PRN #32 tab 09/27/23 7.5-325] Ondansetron Odt [Zofran Odt] 1 tab PO Q8HR PRN #10 tab 09/27/23 Sennosides [Senokot] 2 tab PO DAILY PRN #60 tablet 09/27/23 Cyclobenzaprine [Flexeril] 10 mg PO TID PRN #30 tab 09/28/23 Allergies Allergy/AdvReac Type Severity Reaction Status Date / Time codeine Allergy Vomiting Verified 05/23/24 23:14 Review of Systems ROS Statement: Those systems with pertinent positive or pertinent negative responses have been documented in the HPI. ROS Other: All systems not noted in ROS Statement are negative. Past Medical History Past Medical History: Hypertension, Osteoarthritis (OA) Additional Past Medical History / Comment(s): SEASONAL ALLERGIES History of Any Multi-Drug Resistant Organisms: None Reported Past Surgical History: Orthopedic Surgery Additional Past Surgical History / Comment(s): COLONOSCOPY. EPIDURAL INJECTIONS Past Anesthesia/Blood Transfusion Reactions: No Reported Reaction Past Psychological History: No Psychological Hx Reported Smoking Status: Former smoker Past Alcohol Use History: None Reported - Past Family History Father Family Medical History: Cancer Mother Family Medical History: Cancer General Exam General appearance: alert, in distress Head exam: Present: other (dried blood surrounding the right roman catholic) Eye exam: Present: PERRL Neck exam: Present: other (C-collar in place) Respiratory exam: Present: normal lung sounds bilaterally. Absent: respiratory distress, wheezes Cardiovascular Exam: Present: regular rate, normal rhythm GI/Abdominal exam: Present: soft. Absent: distended, tenderness, guarding Neurological exam: Present: alert. Absent: motor sensory deficit Skin exam: Present: warm Course Vital Signs 05/23/24 05/24/24 05/24/24 23:10 00:00 01:00 Temperature 97.1 F L Pulse Rate 79 65 60 Respiratory 18 18 18 Rate Blood Pressure 154/101 153/79 164/94 O2 Sat by Pulse 96 97 97 Oximetry - Reevaluation(s) Reevaluation #1: 05/24/24 00:46 Patient reevaluated, she begins to remember the sequence of events and believes that she tripped falling striking her head. Unknown how long she was unconscious. Patient complains of headache. Procedures - Laceration Laceration #1 Consent Obtained: verbal consent Indication: laceration Site: scalp Size (cm): 2 Description: linear Depth: simple, single layer Anesthetic Used: lidocaine 1%, with epi Anesthesia Technique: local infiltration Amount (mls): 3 Pre-repair: wound explored, irrigated extensively, deep structures intact Type of Sutures: other ([place]) Number of Sutures: 4 Technique: simple, interrupted Patient Tolerated Procedure: well Medical Decision Making - Medical Decision Making Was pt. sent in by a medical professional or institution (BRENNAN Levin, BELLY DUMP DRIVER, urgent care, hospital, or half-way...) When possible be specific @ -No Did you speak to anyone other than the patient for history (EMS, parent, family, police, friend...)? What history was obtained from this source @ -No Did you review nursing and triage notes (agree or disagree)? Why? @ -I reviewed and agree with nursing and triage notes Were old charts reviewed (outside hosp., previous admission, EMS record, old EKG, old radiological studies, urgent care reports/EKG's, half-way records)? Report findings @ -No old charts were reviewed Differential Diagnosis: Traumatic injury from fall, intracranial hemorrhage, skull fracture, cervical fracture or subluxation EKG interpreted by me (3pts min.). @Sinus rhythm rate of 68, IA interval 129, QRS duration 109, QTc [address] segment elevation. X-rays interpreted by me (1pt min.). @ -Chest x-ray negative for acute traumatic injury CT interpreted by me (1pt min.). @ -None done U/S interpreted by me (1pt. min.). @ -None done What testing was considered but not performed or refused? (CT, X-rays, U/S, labs)? Why? @ -None What meds were considered but not given or refused? Why? @ -None Did you discuss the management of the patient with other professionals (professionals i.e. BRENNAN Levin, BELLY DUMP DRIVER, lab, RT, psych nurse, social contact worker, supervisor cell efficiency, teacher, commercial account officer, family caseworker)? Give summary @ -No Was smoking cessation discussed for >3mins.? @ -No Was critical care preformed (if so, how long)? @Yes, 35 minutes Were there social determinants of health that impacted care today? How? (Homelessness, low income, unemployed, alcoholism, drug addiction, transportation, low edu. Level, literacy, decrease access to med. care, group home, rehab)? @ -No Was there de-escalation of care discussed even if they declined (Discuss DNR or withdrawal of care, Hospice)? DNR status @ -No What co-morbidities impacted this encounter? (DM, HTN, Smoking, COPD, CAD, Cancer, CVA, ARF, Chemo, Hep., AIDS, mental health diagnosis, sleep apnea, morbid obesity)? @ -None Was patient admitted / discharged? Hospital course, mention meds given and route, prescriptions, significant lab abnormalities, going to OR and other pertinent info. @ -58-year-old female status post fall with head injury, scalp laceration, positive loss of consciousness. Scalp laceration is repaired with 4 rick. Patient regains normal level of consciousness, GCS 15 without focal neurologic findings. Head CT is negative for intracranial hemorrhage, cervical spine negative for fracture or subluxation. Patient's vital signs remained stable. She is stable for discharge with family. Undiagnosed new problem with uncertain prognosis? @ -No Drug Therapy requiring intensive monitoring for toxicity (Heparin, Nitro, Insulin, Cardizem)? @ -No Were any procedures done? @ -Yes, laceration repair Diagnosis/symptom? @ -Head injury, scalp laceration, concussion Acute, or Chronic, or Acute on Chronic? @ -Acute Uncomplicated (without systemic symptoms) or Complicated (systemic symptoms)? @ -Default Side effects of treatment? @ -No Exacerbation, Progression, or Severe Exacerbation? @ -No Poses a threat to life or bodily function? How? (Chest pain, [place], [place], pneumonia, PE, COPD, DKA, ARF, appy, cholecystitis, CVA, Diverticulitis, Homicidal, Suicidal, threat to staff... and all critical care pts) @ -No - Lab Data Result diagrams: 05/23/24 23:18 05/23/24 23:18 Lab Results 05/23/24 05/23/24 05/23/24 Range/Units 23:18 23:18 23:18 WBC 11.7 H (3.8-10.6) k/uL RBC 4.59 (3.80-5.40) m/uL Hgb 14.0 (11.4-16.0) gm/dL Hct 41.9 (34.0-46.0) % MCV 91.3 (80.0-100.0) fL MCH 30.6 (25.0-35.0) pg MCHC 33.5 (31.0-37.0) g/dL RDW 13.0 (11.5-15.5) % Plt Count 254 (150-450) k/uL MPV 8.4 Neutrophils % 62 % Lymphocytes % 30 % Monocytes % 4 % Eosinophils % 2 % Basophils % 0 % Neutrophils # 7.2 (1.3-7.7) k/uL Lymphocytes # 3.5 (1.0-4.8) k/uL Monocytes # 0.5 (0-1.0) k/uL Eosinophils # 0.2 (0-0.7) k/uL Basophils # 0.1 (0-0.2) k/uL Sodium 140 (137-145) mmol/L Potassium 3.5 (3.5-5.1) mmol/L Chloride 106 (98-107) mmol/L Carbon Dioxide 26 (22-30) mmol/L Anion Gap 8 mmol/L BUN 19 H (7-17) mg/dL Creatinine 0.68 (0.52-1.04) mg/dL Est GFR (CKD-EPI)AfAm >90 (>60 ml/min/1.73 sqM) Est GFR (CKD-EPI)NonAf >90 (>60 ml/min/1.73 sqM) Glucose 131 H (74-99) mg/dL Calcium 9.7 (8.4-10.2) mg/dL Magnesium 1.8 (1.6-2.3) mg/dL Total Bilirubin 0.4 (0.2-1.3) mg/dL AST 39 H (14-36) U/L ALT 20 (4-34) U/L Alkaline Phosphatase 108 (38-126) U/L Total Protein 7.0 (6.3-8.2) g/dL Albumin 4.5 (3.5-5.0) g/dL Serum Alcohol <10 mg/dL Critical Care Time Critical Care Time: Yes Total Critical Care Time: 35 Disposition Clinical Impression: Concussion with loss of consciousness, Scalp laceration Disposition: HOME SELF-CARE Condition: Fair Instructions (If sedation given, give patient instructions): Laceration (ED), Concussion (ED) Additional Instructions: Please return for staple removal in 10 to 14 days Is patient prescribed a controlled substance at d/c from ED?: No Referrals: Tayler Caal MD [Primary Care Provider] - 1-2 days Time of Disposition: 00:48
--- NOTE | 2024-05-23 23:45 | CT ---
EXAM: CT Head Without Intravenous Contrast CLINICAL HISTORY: ITS.REASON CT Reason: trauma TECHNIQUE: Axial computed tomography images of the head/brain without intravenous contrast. CTDI is 45.2 mGy and DLP is 1126 mGy-cm. This CT exam was performed using one or more of the following dose reduction techniques: automated exposure control, adjustment of the mA and/or kV according to patient size, and/or use of iterative reconstruction technique. COMPARISON: No relevant prior studies available. FINDINGS: Brain: Calcification along the falx. Dilated perivascular spaces in the basal ganglia. No hemorrhage. No significant white matter disease. Ventricles: No acute findings. No ventriculomegaly. Bones/joints: Unremarkable. No acute fracture. Soft tissues: Right parietal scalp hematoma and laceration. Sinuses: Fluid in the sphenoid sinuses. Polypoid mucosal thickening in the right maxillary sinus. Mastoid air cells: Unremarkable as visualized. No mastoid effusion. IMPRESSION: 1. Right parietal scalp hematoma and laceration. 2. No acute intracranial pathology. EXAM: CT Cervical Spine Without Intravenous Contrast CLINICAL HISTORY: ITS.REASON CT Reason: trauma TECHNIQUE: Axial computed tomography images of the cervical spine without intravenous contrast. CTDI is 11.4 mGy and DLP is 350 mGy-cm. This CT exam was performed using one or more of the following dose reduction techniques: automated exposure control, adjustment of the mA and/or kV according to patient size, and/or use of iterative reconstruction technique. COMPARISON: No relevant prior studies available. FINDINGS: Vertebrae: Straightening of the cervical spine. No acute fracture. Discs/spinal canal/neural foramina: Cervical degenerative disc disease. No significant stenosis. Soft tissues: No acute findings. Thyroid: Calcified calcification in the right lobe of thyroid. IMPRESSION: No fracture or traumatic malalignment.
[2024-05-24 00:01] LABS: ALT 20 U/L (4-34); AST 39 U/L (14-36); African American GFR (CKD) >90 (>60 ml/min/1.73 sqM); Albumin 4.5 g/dL (3.5-5.0); Alkaline Phosphatase 108 U/L (38-126); Anion Gap 8 mmol/L; Blood Urea Nitrogen 19 mg/dL (7-17); Calcium 9.7 mg/dL (8.4-10.2); Carbon Dioxide 26 mmol/L (22-30); Chloride 106 mmol/L (98-107); Glucose 131 mg/dL (74-99); Magnesium 1.8 mg/dL (1.6-2.3); Non-African American GFR(CKD) >90 (>60 ml/min/1.73 sqM); Potassium 3.5 mmol/L (3.5-5.1); Sodium 140 mmol/L (137-145); Total Bilirubin 0.4 mg/dL (0.2-1.3)
[2024-05-24 00:08] LABS: Basophils # (A) 0.1 k/uL (0-0.2); Basophils % (A) 0 %; Eosinophils # (A) 0.2 k/uL (0-0.7); Eosinophils % (A) 2 %; HCT 41.9 % (34.0-46.0); Lymphocytes # (A) 3.5 k/uL (1.0-4.8); Lymphocytes % (A) 30 %; MCH 30.6 pg (25.0-35.0); MCHC 33.5 g/dL (31.0-37.0); MCV 91.3 fL (80.0-100.0); Mean Platelet Volume 8.4; Monocytes # (A) 0.5 k/uL (0-1.0); Monocytes % (A) 4 %; Neutrophils # (A) 7.2 k/uL (1.3-7.7); Neutrophils % (A) 62 %; Platelet Count 254 k/uL (150-450); RBC 4.59 m/uL (3.80-5.40); WBC 11.7 k/uL (3.8-10.6)
[2024-05-24] MEDS: DIPH,PERTUS(ACELL)TETVAC-LF 0.5 ML VIAL IM ONE (00:33)
[2024-05-24] MEDS: ONDANSETRON 4 MG/2 ML VIAL IVP STA (00:34)
[2024-05-24] MEDS: HYDROmorphone 0.5 MG/0.5 ML SYRINGE IVP STA (00:37)
[2024-05-24] MEDS: SODIUM CHLORIDE 0.9% 500 ML 500 ML IV ONE (01:44)
--- NOTE | 2024-05-24 01:48 | XR ---
EXAM: XR Chest, 2 Views CLINICAL HISTORY: ITS.REASON XR Reason: fall TECHNIQUE: Frontal and lateral views of the chest. COMPARISON: No relevant prior studies available. FINDINGS: Lungs: Mild enlarged cardiac silhouette. Pulmonary vascular congestion. No consolidation. Pleural space: Unremarkable. No pneumothorax. Heart: Mildly enlarged. Bones/joints: No acute osseous abnormality. IMPRESSION: Mild enlarged cardiac silhouette. Pulmonary vascular congestion.
[2024-05-24] MEDS: traMADol 50 MG STARTER PACK 3 TAB BTL PO STA (02:12)
[2024-05-24 02:27] VITALS: BP 153/85; PULSE 74; TEMP 97.9
== END 2024-05-24 02:22 | disposition home or self-care (01) ==
LOC: EC 23:09
DX: S06.0X9A Concussion with loss of consciousness of unspecified duration, initial encounter (principal); S01.01XA Laceration without foreign body of scalp, initial encounter; Z88.5 Allergy status to narcotic agent; Z87.891 Personal history of nicotine dependence; Z23 Encounter for immunization; W01.10XA Fall on same level from slipping, tripping and stumbling with subsequent striking against unspecified object, initial encounter; Y92.59 Other trade areas as the place of occurrence of the external cause
CPT/HCPCS: 36415; 93005; 80053; 83735; 85025; 71046; 72125; 70450; 90715; 12001; 99291; 96374; 96375; 90471; G0480; J2405; J1171; 80320